=== PATIENT | male | born 1960 | race Caucasian/White ===

== ENCOUNTER 2023-04-08 08:10 | Day surgery (SDC) | payer OTHER, SELFPAY ==
[2023-03-26 15:13] VITALS: BMI 23.7
--- NOTE | 2023-04-07 07:57 | P.PNAN_ITS ---
Anes - Initial Pre Proc Eval Procedure: Operation Date: 04/08/23 11:00 Proposed Procedures p Esophagogastroduodenoscopy - Colin Reaves MD s Colonoscopy - Colin Reaves MD Date/Time: 04/07/23 07:57 Surgeon: Colin Reaves MD Pre Op Diagnosis: Constipation, Achalasia of Cardia Patient Data Age: 62 Gender: M Height: 1.85 m Weight: 81.647 kg Allergies Allergy/AdvReac Type Severity Reaction Status Date / Time No Known Allergies Allergy Verified 04/02/23 10:05 Home Medications Medication Instructions Recorded Confirmed Type amiodarone 100 mg tablet 100 mg PO DAILY 05/14/22 04/02/23 History atorvastatin 10 mg tablet 10 mg PO DAILY 05/14/22 04/02/23 History bupropion HCl 150 mg 24 hr tablet, 150 mg PO QAM 05/14/22 04/02/23 History extended release lisinopril 2.5 mg tablet 2.5 mg PO DAILY 05/14/22 04/02/23 History metoprolol succinate 50 mg 50 mg PO DAILY 05/14/22 04/02/23 History tablet,extended release 24 hr testosterone cypionate 200 mg/mL 200 mg IM WEEKLY 05/14/22 04/02/23 History intramuscular oil (Depo-Testosterone) aspirin 81 mg capsule 81 mg PO DAILY 04/02/23 04/02/23 History tadalafil 5 mg tablet 5 mg PO DAILY PRN Erectile 04/02/23 04/02/23 History Dysfunction tamsulosin 0.4 mg capsule 0.4 mg PO HS 04/02/23 04/02/23 History Results Review: All pre-operative results and documents have been reviewed as part of the pre- operative evaluation. [facility] Past Medical History Medical History (Updated 04/07/23 @ 07:57 by Aubrey Castro DO) Achalasia Anxiety Colon cancer screening Constipation Cough Depression Hyperlipidemia Hypertension Social History Social History Smoking status: Never smoker Alcohol intake: current Drinks per week: 1 Substance use: never Substance use type: does not use Living arrangements: with family Spiritual care concerns: No Anes - Eval Final PreProcedure Day of Procedure 04/07/23 07:57 Patient weight: normal Heart: regular rate and rhythm Lungs: clear to auscultation and normal air movement Airway: Mallampati scale class II Neurological: alert and oriented Last oral intake: >/= 8 hours ASA classification: II Emergent: no Anesthetic plan: proceed Anesthesia type and monitoring: general GIVS and standard monitoring Results Review: All pre-operative results and documents have been reviewed as part of the pre- operative evaluation. Informed Consent: The patient's anesthetic plan and its attendant risks and benefits were discussed with the patient/family/POA. Questions were solicited and answers provided to the satisfaction of the patient/family/POA.
--- NOTE | 2023-04-07 14:42 | PM.HPGS ---
History of Present Illness History of Present Illness Consent: Risks, benefits, and alternatives have been discussed and questions answered. Patient agrees to proceed with procedure. Chief complaint: Constipation, Achalasia of Cardia Narrative: Jackson Goncalves is a 62 year old male is here for follow-up of achalasia. several years ago he had balloon dilatation. He also has acid reflux but not currently on medication for that. He is due for colon cancer screening. Review of Systems Review of Systems: All systems reviewed & are unremarkable except as noted in HPI and below PMFSH Past Medical History Medical History Achalasia Anxiety Colon cancer screening Constipation Cough Depression Hyperlipidemia Hypertension Social History Social History Smoking status: Never smoker Alcohol intake: current Drinks per week: 1 Substance use: never Substance use type: does not use Living arrangements: with family Spiritual care concerns: No Meds Home Medications and Allergies Home Medications Medication Instructions Recorded Confirmed Type amiodarone 100 mg tablet 100 mg PO DAILY 05/14/22 04/08/23 History atorvastatin 10 mg tablet 10 mg PO DAILY 05/14/22 04/08/23 History bupropion HCl 150 mg 24 hr tablet, 150 mg PO QAM 05/14/22 04/08/23 History extended release lisinopril 2.5 mg tablet 2.5 mg PO DAILY 05/14/22 04/08/23 History metoprolol succinate 50 mg 50 mg PO DAILY 05/14/22 04/08/23 History tablet,extended release 24 hr testosterone cypionate 200 mg/mL 200 mg IM WEEKLY 05/14/22 04/08/23 History intramuscular oil (Depo-Testosterone) aspirin 81 mg capsule 81 mg PO DAILY 04/02/23 04/08/23 History tadalafil 5 mg tablet 5 mg PO DAILY PRN Erectile 04/02/23 04/08/23 History Dysfunction tamsulosin 0.4 mg capsule 0.4 mg PO HS 04/02/23 04/08/23 History Allergies Allergy/AdvReac Type Severity Reaction Status Date / Time No Known Allergies Allergy Verified 04/08/23 09:39 Exam Const: General: alert Orientation/consciousness: patient oriented x3 Resp: Auscultation: clear to auscultation bilaterally Cardio: Rhythm: regular rhythm GI: GI Palp: Yes Soft to palpation and No Tenderness to palpation present (GI) Neuro: General: patient oriented x3 Assessment and Plan Assessment and plan (1) Achalasia: Code(s): K22.0 - Achalasia of cardia Status: Acute Assessment and Plan: EGD with possible biopsy or dilatation or cautery. (2) Colon cancer screening: Code(s): Z12.11 - Encounter for screening for malignant neoplasm of colon Status: Acute Assessment and Plan: Colonoscopy with possible biopsy or polypectomy or cautery or injection of substances.
[2023-04-08 09:41] VITALS: BP 118/75; PULSE 68; RESP 16; TEMP 36.4; O2SAT 99
[2023-04-08] MEDS: LACTATED RINGERS 1,000 ML 150 ML IV CONT (09:57)
--- NOTE | 2023-04-08 10:02 | P.PNAN_ITS ---
Anes - Initial Pre Proc Eval Procedure: Operation Date: 04/08/23 11:00 Proposed Procedures p Esophagogastroduodenoscopy - Colin Reaves MD s Colonoscopy - Colin Reaves MD Date/Time: 04/08/23 10:02 Surgeon: Colin Reaves MD Pre Op Diagnosis: Constipation, Achalasia of Cardia Patient Data Age: 62 Gender: M Height: 1.85 m Weight: 80.2 kg Last Vital Signs Temp 36.4 C 04/08/23 09:41 Pulse 68 04/08/23 09:41 Resp 16 04/08/23 09:41 BP 118/75 04/08/23 09:41 Pulse Ox 99 04/08/23 09:41 O2 Del Method Room Air 04/08/23 09:41 Allergies Allergy/AdvReac Type Severity Reaction Status Date / Time No Known Allergies Allergy Verified 04/08/23 09:39 Home Medications Medication Instructions Recorded Confirmed Type amiodarone 100 mg tablet 100 mg PO DAILY 05/14/22 04/08/23 History atorvastatin 10 mg tablet 10 mg PO DAILY 05/14/22 04/08/23 History bupropion HCl 150 mg 24 hr tablet, 150 mg PO QAM 05/14/22 04/08/23 History extended release lisinopril 2.5 mg tablet 2.5 mg PO DAILY 05/14/22 04/08/23 History metoprolol succinate 50 mg 50 mg PO DAILY 05/14/22 04/08/23 History tablet,extended release 24 hr testosterone cypionate 200 mg/mL 200 mg IM WEEKLY 05/14/22 04/08/23 History intramuscular oil (Depo-Testosterone) aspirin 81 mg capsule 81 mg PO DAILY 04/02/23 04/08/23 History tadalafil 5 mg tablet 5 mg PO DAILY PRN Erectile 04/02/23 04/08/23 History Dysfunction tamsulosin 0.4 mg capsule 0.4 mg PO HS 04/02/23 04/08/23 History Patient hx anesthesia problems: none Family hx anesthesia problems: none Results Review: All pre-operative results and documents have been reviewed as part of the pre- operative evaluation. [facility] Past Medical History Medical History Achalasia Anxiety Colon cancer screening Constipation Cough Depression Hyperlipidemia Hypertension Social History Social History Smoking status: Never smoker Alcohol intake: current Drinks per week: 1 Substance use: never Substance use type: does not use Living arrangements: with family Spiritual care concerns: No Anes - Eval Final PreProcedure Day of Procedure 04/08/23 10:02 Patient weight: normal Heart: regular rate and rhythm Lungs: clear to auscultation Airway: Mallampati scale class II Neurological: alert and oriented Last oral intake: >/= 8 hours ASA classification: III Emergent: no Anesthetic plan: proceed Anesthesia type and monitoring: general Results Review: All pre-operative results and documents have been reviewed as part of the pre- operative evaluation. Informed Consent: The patient's anesthetic plan and its attendant risks and benefits were discussed with the patient/family/POA. Questions were solicited and answers provided to the satisfaction of the patient/family/POA.
[2023-04-08 10:45] VITALS: BP 96/58; PULSE 65; RESP 16; O2SAT 97
[2023-04-08 10:55] VITALS: BP 122/80; PULSE 65; RESP 16; O2SAT 100
[2023-04-08 11:05] VITALS: BP 128/80; PULSE 71; RESP 16; O2SAT 100
--- NOTE | 2023-04-08 11:12 | WPDANESPN ---
Anes - Prog Note Post-Op Date/Time: 04/08/23 11:12 Cardiovascular status: normal Respiratory status: normal Airway patency: baseline Mental status: baseline Post-Op hydration status: normal Vital Signs: Last Vital Signs Temp 36.4 C 04/08/23 09:41 Pulse 71 04/08/23 11:05 Resp 16 04/08/23 11:05 BP 128/80 04/08/23 11:05 Pulse Ox 100 04/08/23 11:05 O2 Del Method Room Air 04/08/23 11:05 Pain Score (VAS): 0 I/O: Intake & Output 04/07/23 04/08/23 04/08/23 23:59 07:59 15:59 Intake Total 700 Balance 700 Patient Feedback: Patient satisfied with anesthetic care.
[2023-04-08 11:15] VITALS: BP 121/70; PULSE 70; RESP 16; O2SAT 100
== END 2023-04-08 11:30 | disposition home or self-care (01) ==
PROVIDERS: PCP Internal Medicine; Visit Provider Internal Medicine Gastroenterology
PROC: 0DJ08ZZ Inspection of Upper Intestinal Tract, Via Natural or Artificial Opening Endoscopic (ICD-10-PCS; CPT 43235; principal; 2023-04-08 11:00)
PROC: 0DJD8ZZ Inspection of Lower Intestinal Tract, Via Natural or Artificial Opening Endoscopic (ICD-10-PCS; CPT 45378; 2023-04-08 11:00)
DX: Z12.11 Encounter for screening for malignant neoplasm of colon (principal); K22.0 Achalasia of cardia; K64.8 Other hemorrhoids; K22.2 Esophageal obstruction
CPT/HCPCS: 45378; 43249